=== PATIENT | male | born 2000 | race Caucasian/White ===

== ENCOUNTER 2020-11-03 02:46 | Emergency (ER) | payer SELFPAY | END 2020-11-03 04:10 | disposition home or self-care (01) | LOC: ERS 02:46 | DX: S01.81XA Laceration without foreign body of other part of head, initial encounter (principal); W01.10XA Fall on same level from slipping, tripping and stumbling with subsequent striking against unspecified object, initial encounter | CPT/HCPCS: 12013 ==